=== PATIENT | female | born 1990 | race Caucasian/White ===

== ENCOUNTER → 2016-12-05 | Outpatient (CLI) | payer OTHER ==
[2016-12-05 12:26] LABS: BASOPHIL % 0.3 % (0-2); PLATELET COUNT 219 x10^3mcL (130-400); RED CELL DISTRIBUTION WIDTH 12.5 % (11.5-14.5)
[2016-12-05 12:52] LABS: FREE T4 1.12 ng/dL (0.76-1.46)
[2016-12-05 12:53] LABS: ALBUMIN 3.7 g/dL (3.4-5.0); ALKALINE PHOSPHATASE 69 U/L (46-116); ALT/SGPT 30 U/L (14-59); AST/SGOT 16 U/L (15-37); BILIRUBIN DIRECT 0.14 mg/dL (0.0-0.2); BILIRUBIN TOTAL 0.65 mg/dL (0.20-1.00); CALCIUM 9.1 mg/dL (8.5-10.1); CARBON DIOXIDE 25.8 mmol/L (21-32); CHLORIDE SERUM 104 mmol/L (98-107); CHOLESTEROL 213 mg/dL (<200); CHOLESTEROL/HDL RATIO 3.4; CREATININE SERUM 0.8 mg/dL (0.6-1.0); GFR1 > 60 mL/min; GLUCOSE SERUM 96 mg/dL (74-106); HDL CHOLESTEROL 63 mg/dL (40-60); POTASSIUM SERUM 3.9 mmol/L (3.5-5.1); SODIUM SERUM 138 mmol/L (136-145); TOTAL PROTEIN, SERUM 7.9 g/dL (6.4-8.2); TRIGLYCERIDES 115 mg/dL (<150)
[2016-12-06 13:10] LABS: MUMPS AB IGG <9.0 AU/mL (Immune >10.9); RUBEOLA AB IGG >300.0 AU/mL (Immune >29.9)
== END | disposition home or self-care (01) ==
LOC: LB 11:47
PROVIDERS: Internal Medicine
DX: Z00.00 Encounter for general adult medical examination without abnormal findings (principal)
CPT/HCPCS: 84439; 86787

== ENCOUNTER → 2016-12-16 | Outpatient (CLI) | payer OTHER | END | disposition home or self-care (01) | LOC: LB 10:13 | DX: B19.10 Unspecified viral hepatitis B without hepatic coma (principal) ==

== ENCOUNTER 2017-01-17 05:17 | Emergency (ER) | payer OTHER ==
[2017-01-17 05:52] VITALS: BP 129/73
== END 2017-01-17 05:53 | disposition home or self-care (01) ==
LOC: ED 05:17
DX: S91.331A Puncture wound without foreign body, right foot, initial encounter (principal); X58.XXXA Exposure to other specified factors, initial encounter; Y93.89 Activity, other specified; Y99.8 Other external cause status; Y92.89 Other specified places as the place of occurrence of the external cause
CPT/HCPCS: 90715

== ENCOUNTER → 2019-05-22 | Outpatient (CLI) | payer OTHER ==
[2019-05-22 12:20] LABS: BASOPHIL % 0.3 % (0-2); PLATELET COUNT 214 x10^3mcL (130-400); RED CELL DISTRIBUTION WIDTH 13.2 % (11.5-14.5)
[2019-05-22 12:23] LABS: ALBUMIN 3.7 g/dL (3.4-5.0); ALKALINE PHOSPHATASE 66 U/L (46-116); ALT/SGPT 24 U/L (14-59); AST/SGOT 16 U/L (15-37); BILIRUBIN DIRECT 0.11 mg/dL (0.0-0.2); BILIRUBIN TOTAL 0.6 mg/dL (0.20-1.00); CALCIUM 8.5 mg/dL (8.5-10.1); CHLORIDE SERUM 104 mmol/L (98-107); CREATININE SERUM 0.8 mg/dL (0.6-1.0); GFR1 > 60 mL/min; GLUCOSE SERUM 95 mg/dL (74-106); POTASSIUM SERUM 4.4 mmol/L (3.5-5.1); SODIUM SERUM 140 mmol/L (136-145); TRIGLYCERIDES 79 mg/dL (<150)
[2019-05-22 12:36] LABS: CHOLESTEROL 233 mg/dL (<200); CHOLESTEROL/HDL RATIO 3.5; HDL CHOLESTEROL 66 mg/dL (40-60)
== END | disposition home or self-care (01) ==
LOC: LB 11:45
DX: Z00.00 Encounter for general adult medical examination without abnormal findings (principal)

== ENCOUNTER → 2020-09-27 | Outpatient (REF) | END | disposition home or self-care (01) | LOC: EH 06:37 | DX: R76.11 Nonspecific reaction to tuberculin skin test without active tuberculosis (principal) ==